=== PATIENT | male | born 1995 | race Two or more races ===

== ENCOUNTER 2017-11-15 21:09 | Emergency (ER) | payer OTHER ==
[~2017-11-15] VITALS: Ht 182.9 cm; Wt 109.8 kg
[2017-11-16] MEDS ORDERED: KETOROLAC TROME10 MG PO (01:15)
[2017-11-16] MEDS ORDERED: OSEL75CA PO (01:15)
[2017-11-16] MEDS ORDERED: AIRBORNE EFFER1 EACH PO (01:15)
== END 2017-11-16 01:12 | disposition home or self-care (01) ==
LOC: ER 21:09
DX: J11.1 Influenza due to unidentified influenza virus with other respiratory manifestations (principal)

== ENCOUNTER 2018-04-24 23:31 | Emergency (ER) | payer OTHER ==
[~2018-04-24] VITALS: Ht 182.9 cm; Wt 108.9 kg
[~2018-04-24 23:31] MED LIST: AIRBORNE EFFER1 EACH PO; KETOROLAC TROME10 MG PO; OSEL75CA PO
== END 2018-04-25 03:45 | disposition home or self-care (01) ==
LOC: ER 23:31
DX: S93.492A Sprain of other ligament of left ankle, initial encounter (principal); X50.3XXA Overexertion from repetitive movements, initial encounter; Y93.67 Activity, basketball; Y92.39 Other specified sports and athletic area as the place of occurrence of the external cause; Y99.8 Other external cause status

== ENCOUNTER → 2018-09-21 | Emergency (ER) | payer OTHER ==
[~2018-09-21] VITALS: Ht 182.9 cm; Wt 113.4 kg
[~2018-09-21] MED LIST changes: +AMOX-CLAV 875-1 EACH PO; +FLONASE16 GM NASAL; +KETO10TA2 PO; +ZYNCOF 20-400120 ML PO
== END | disposition home or self-care (01) ==
LOC: ER 23:39
DX: J32.1 Chronic frontal sinusitis (principal); J11.1 Influenza due to unidentified influenza virus with other respiratory manifestations

== ENCOUNTER 2018-10-13 12:26 | Outpatient (CLI) | payer OTHER | END 2018-10-13 12:43 | disposition home or self-care (01) | LOC: MRI 12:26 | DX: Q76.49 Other congenital malformations of spine, not associated with scoliosis (principal); M43.07 Spondylolysis, lumbosacral region; M54.5 Low back pain | CPT/HCPCS: 72148 ==

== ENCOUNTER 2019-12-09 19:28 | Emergency (ER) | payer OTHER ==
[~2019-12-09] VITALS: Ht 182.9 cm; Wt 117.9 kg
[2019-12-10] MEDS ORDERED: ZYNCOF 20-400120 ML PO (03:48)
[2019-12-10] MEDS ORDERED: ALBUTEROL2.5 MG/3 M IH (03:48)
== END 2019-12-10 03:44 ==
LOC: ER 19:28
DX: J06.9 Acute upper respiratory infection, unspecified (principal)

== ENCOUNTER 2020-12-13 21:13 | Emergency (ER) | payer OTHER ==
[~2020-12-13] VITALS: Ht 182.9 cm; Wt 122.5 kg
[~2020-12-13 21:13] MED LIST changes: +ALBUTEROL2.5 MG/3 M IH
[2020-12-14] MEDS ORDERED: LEVSIN/SL0.125 MG SL (02:39)
[2020-12-14] MEDS ORDERED: ZOFRAN8 MG PO (02:39)
[2020-12-14] MEDS ORDERED: INTESTINEX680 M1 PO (02:39)
== END 2020-12-14 02:49 ==
LOC: ER 21:13
DX: K52.89 Other specified noninfective gastroenteritis and colitis (principal); Z20.822 Contact with and (suspected) exposure to COVID-19

== ENCOUNTER 2020-12-18 21:54 | Emergency (ER) | payer OTHER ==
[~2020-12-18] VITALS: Ht 182.9 cm; Wt 122.5 kg
[~2020-12-18 21:54] MED LIST changes: +INTESTINEX680 M1 PO; +LEVSIN/SL0.125 MG SL; +ZOFRAN8 MG PO
[2020-12-19] MEDS ORDERED: LEVSIN/SL0.125 MG SL (07:49)
[2020-12-19] MEDS ORDERED: ZOFRAN8 MG PO (07:49)
[2020-12-19] MEDS ORDERED: INTESTINEX680 M1 PO (07:49)
== END 2020-12-19 08:07 ==
LOC: ER 21:54
DX: K52.89 Other specified noninfective gastroenteritis and colitis (principal)

== ENCOUNTER → 2021-03-03 | Emergency (ER) | payer OTHER ==
[~2021-03-03] VITALS: Ht 180.3 cm; Wt 97.5 kg
[~2021-03-03] MED LIST changes: +CEFADROXIL500 MG PO
== END | disposition home or self-care (01) ==
LOC: ER 20:57
DX: L03.012 Cellulitis of left finger (principal)

== ENCOUNTER 2021-03-07 20:04 | Emergency (ER) | payer OTHER ==
[~2021-03-07] VITALS: Ht 182.9 cm; Wt 122.5 kg
== END 2021-03-07 22:33 | disposition home or self-care (01) ==
LOC: ER 20:04
DX: M65.842 Other synovitis and tenosynovitis, left hand (principal)

== ENCOUNTER 2022-02-03 17:46 | Emergency (ER) | payer OTHER ==
[~2022-02-03] VITALS: Ht 182.9 cm; Wt 122.5 kg
[2022-02-03] MEDS ORDERED: EC-NAPROSYN375 MG PO (21:16)
== END 2022-02-03 21:30 | disposition home or self-care (01) ==
LOC: ER 17:46
DX: S93.402A Sprain of unspecified ligament of left ankle, initial encounter (principal); X58.XXXA Exposure to other specified factors, initial encounter; Y93.9 Activity, unspecified; Y92.9 Unspecified place or not applicable